=== PATIENT | female | born 1990 | race Caucasian/White ===

== ENCOUNTER → 2020-01-04 | Outpatient (CLI) | payer MEDICAID, SELFPAY | END | disposition home or self-care (01) | LOC: LAB 10:25 | PROVIDERS: ATTEND Obstetrics & Gynecology | DX: Z34.93 Encounter for supervision of normal pregnancy, unspecified, third trimester (principal); Z3A.39 39 weeks gestation of pregnancy; Z03.818 Encounter for observation for suspected exposure to other biological agents ruled out | CPT/HCPCS: C9803; U0003 ==

== ENCOUNTER 2020-01-07 12:10 | Inpatient (IN) | payer MEDICAID ==
[~2020-01-07] VITALS: Ht 154.9 cm; Wt 78.0 kg
[2020-01-07] MEDS ORDERED: LACTATED RINGERS 1,000 ML IV SCH (12:45)
[2020-01-07] MEDS ORDERED: METHYLERGONOVINE MALEATE 0.2 MG/ML IM PRN (12:45)
[2020-01-07] MEDS ORDERED: MISOPROSTOL 100MCG TABLET VG SCH (12:45)
[2020-01-07] MEDS ORDERED: CITRIC ACID/SODIUM CITRATE SOLN 30ML UDC PO SCH (12:45)
[2020-01-07] MEDS ORDERED: DEXT 5%/LR + PITOCIN 20UNITS/L 1,000 ML IV SCH (12:45)
[2020-01-07] MEDS ORDERED: CARBOPROST TROMETHAMINE 250 MCG/ML AMPUL IM PRN (12:45)
[2020-01-07] MEDS ORDERED: NALOXONE HCL 0.4 MG/ML 1ML VIAL IM PRN (12:45)
[2020-01-07] MEDS ORDERED: CEFAZOLIN SODIUM 1000MG/VIAL ONE (13:19)
[2020-01-07] MEDS ORDERED: FENTANYL CITRATE/PF 50MCG/ML 2ML VIAL ONE (13:19)
[2020-01-07] MEDS ORDERED: ONDANSETRON HCL 4MG/2ML INJ ONE (13:19)
[2020-01-07] MEDS ORDERED: OXYTOCIN 10 UNITS/ML 1ML ONE ×2 (13:19→18:03)
[2020-01-07 14:10] LABS: BASOPHILS % 0.3 % (0.0-2.0); EOSINOPHILS % 0.5 % (0.0-5.0); HEMATOCRIT. 35.7 % (36.0-48.0); HEMOGLOBIN. 12.2 g/dL (12.0-16.0); LYMPHOCYTES % 18.5 % (20.0-50.0); MEAN CORPUSCULAR VOLUME 88.1 fL (81.0-99.0); MEAN PLATELET VOLUME 7.9 fl (7.4-10.4); MONOCYTES % 4.6 % (2.0-8.0); NEUTROPHILS % 76.1 % (40.0-76.0); PLATELET 255 x1000/uL (130-400); RED BLOOD CELL COUNT 4.06 mill/uL (4.2-5.4)
[2020-01-07 14:12] LABS: CLARITY URINE CLEAR (CLEAR); COLOR URINE YELLOW (YELLOW); KETONES URINE NEGATIVE (NEGATIVE); LEUKOCYTE ESTERASE URINE TRACE (NEGATIVE); NITRITE URINE NEGATIVE (NEGATIVE); OCCULT BLOOD URINE NEGATIVE (NEGATIVE); PH URINE 6.5 (4.5-8.0); PROTEIN URINE NEGATIVE (NEGATIVE); SPECIFIC GRAVITY URINE 1.016 (1.005-1.030)
[2020-01-07 14:21] LABS: *AMPHETAMINES SCREEN URINE NEGATIVE (NEGATIVE); *BARBITURATES SCREEN URINE NEGATIVE (NEGATIVE); *BENZODIAZEPINES SCREEN URINE NEGATIVE (NEGATIVE); *COCAINE SCREEN URINE NEGATIVE (NEGATIVE)
[2020-01-07 14:22] LABS: CANNABINOID URINE SCREEN NEGATIVE (NEGATIVE); METHADONE URINE SCREEN NEGATIVE (NEGATIVE); OPIATES URINE SCREEN NEGATIVE (NEGATIVE); PHENCYCLIDINE URINE SCREEN NEGATIVE (NEGATIVE)
[2020-01-07 14:28] LABS: PARTIAL THROMBOPLASTIN TIME 28.9 sec (23.4-31.0); PROTHROMBIN TIME 10.3 sec (9.6-11.0)
[2020-01-07 14:47] LABS: HEPATITIS B SURFACE ANTIGEN NEGATIVE
[2020-01-07] MEDS ORDERED: EPHEDRINE SULFATE 50MG/ML VIAL ONE (15:26)
[2020-01-07] MEDS ORDERED: GLYCOPYRROLATE 0.2 MG/ML 2ML VIAL ONE (15:26)
[2020-01-07] MEDS ORDERED: DEXT 5%/LACTATED RINGERS 1,000 ML IV SCH (17:33)
[2020-01-07] MEDS ORDERED: BISACODYL 10MG SUPP PR PRN (17:45)
[2020-01-07] MEDS ORDERED: IBUPROFEN 400MG TABLET PO PRN (17:45)
[2020-01-07] MEDS ORDERED: HEMORRHOIDAL SUPP PR PRN (17:45)
[2020-01-07] MEDS ORDERED: DIPHENHYDRAMINE 25MG CAPSULE PO PRN (17:45)
[2020-01-07] MEDS ORDERED: ACETAMINOPHEN WITH CODEINE 300/30MG TABLET PO PRN (17:45)
[2020-01-07] MEDS ORDERED: ONDANSETRON HCL 4MG/2ML INJ IV PRN (17:45)
[2020-01-07] MEDS ORDERED: KETOROLAC 60MG/2ML VIAL IM ONE (17:49)
[2020-01-07] MEDS ORDERED: DIPHENHYDRAMINE 50MG/ML VIAL ONE (17:49)
[2020-01-07] MEDS ORDERED: NALOXONE HCL 0.4 MG/ML 1ML VIAL IV PRN (18:45)
[2020-01-07] MEDS ORDERED: DIPHENHYDRAMINE 50MG/ML VIAL IV PRN (18:45)
[2020-01-07] MEDS ORDERED: BUTORPHANOL TARTRATE 2 MG/ML VIAL IV PRN (18:45)
[2020-01-07 20:00] VITALS: BP 111/69
[2020-01-07] MEDS ORDERED: DOCUSATE SODIUM 100MG CAPSULE PO SCH (21:00)
[2020-01-07] MEDS: KETOROLAC 30MG/ML VIAL IV SCH (21:07)
[2020-01-07] MEDS: DEXT 5%/LR + PITOCIN 20UNITS/L 1,000 ML IV SCH (21:17)
[2020-01-08] VITALS: BP 118/64
[2020-01-08] MEDS: KETOROLAC 30MG/ML VIAL IV SCH (02:54)
[2020-01-08 04:00] VITALS: BP 126/94
[2020-01-08] MEDS: DEXT 5%/LR + PITOCIN 20UNITS/L 1,000 ML IV SCH ×2 (04:15→12:51)
[2020-01-08 07:54] LABS: BASOPHILS % 0.2 % (0.0-2.0); HEMATOCRIT. 32.1 % (36.0-48.0); HEMOGLOBIN. 10.9 g/dL (12.0-16.0); LYMPHOCYTES % 9.2 % (20.0-50.0); MEAN CORPUSCULAR HEMOGLOBIN 29.9 pg (28.0-32.0); MEAN CORPUSCULAR VOLUME 88.3 fL (81.0-99.0); MEAN PLATELET VOLUME 8.3 fl (7.4-10.4); MONOCYTES % 4.5 % (2.0-8.0); NEUTROPHILS % 86.1 % (40.0-76.0); PLATELET 215 x1000/uL (130-400); RED BLOOD CELL COUNT 3.64 mill/uL (4.2-5.4)
[2020-01-08 08:00] VITALS: BP 103/63
[2020-01-08] MEDS: PRENATAL VIT/FE FUMARATE/FA TABLET PO SCH (10:11)
[2020-01-08] MEDS: FERROUS SULFATE 325MG TABLET PO SCH ×3 (10:12→17:30)
[2020-01-08] MEDS: SIMETHICONE 80MG TABLET CHEW PO SCH ×4 (10:12→21:42)
[2020-01-08 16:00] VITALS: BP 105/61
[2020-01-08 21:30] VITALS: BP 104/65
[2020-01-08] MEDS: AMOXICILLIN/POTASSIUM CLAVULANATE 875/125MG TAB PO SCH (21:42)
[2020-01-08] MEDS: IBUPROFEN 800MG TABLET PO PRN (23:02)
[2020-01-09 04:45] VITALS: BP 110/66
[2020-01-09] MEDS: FERROUS SULFATE 325MG TABLET PO SCH ×2 (07:30→12:41)
[2020-01-09 08:00] VITALS: BP 108/70
[2020-01-09] MEDS: SIMETHICONE 80MG TABLET CHEW PO SCH ×2 (08:00→13:00)
[2020-01-09] MEDS: AMOXICILLIN/POTASSIUM CLAVULANATE 875/125MG TAB PO SCH (09:08)
[2020-01-09] MEDS: PRENATAL VIT/FE FUMARATE/FA TABLET PO SCH (09:08)
[2020-01-09] MEDS: IBUPROFEN 800MG TABLET PO PRN (12:41)
[2020-01-09 16:00] VITALS: BP 116/64
== END 2020-01-09 18:10 | disposition home or self-care (01) | DRG 540 ==
LOC: 8 EST A/PP 12:10 → 8 EST LDRP 12:42 → 8EST 19:59
PROVIDERS: ADMIT Obstetrics & Gynecology; ATTEND Obstetrics & Gynecology
PROC: 10D00Z1 Extraction of Products of Conception, Low, Open Approach (ICD-10-PCS; principal; 2020-01-07)
DX: O69.81X0 Labor and delivery complicated by cord around neck, without compression, not applicable or unspecified (principal); O77.0 Labor and delivery complicated by meconium in amniotic fluid; O34.211 Maternal care for low transverse scar from previous cesarean delivery; Z37.0 Single live birth; Z3A.39 39 weeks gestation of pregnancy; Z82.49 Family history of ischemic heart disease and other diseases of the circulatory system
CPT/HCPCS: 36415; 80305; 81003; 85025; 86592; 86703; 86762; 86850; 86900; 86920; 87340; 88307; J0690; J1200; J1885; J2405; J2590; J3010; J3490; J7120; J7121